=== PATIENT | male | born 1970 | race Caucasian/White ===

== ENCOUNTER 2016-12-17 05:20 | Emergency (ER) | payer OTHER ==
[~2016-12-17] VITALS: Ht 167.6 cm; Wt 82.0 kg
[2016-12-17 05:25] VITALS: Ht 167.6 cm; Wt 82.0 kg
--- NOTE | 2016-12-17 06:24 | ERD ---
ER Documentation Chief Complaint Chief Complaint right foot pain/swelling, fell from stool 3 weeks ago HPI 45-year-old male complains of right lateral foot pain with swelling after falling off a stool 3 weeks ago. 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 Patient landed on the lateral aspect of his foot and is complaining of moderate pain, with swelling, that is achy worse with weightbearing and better at rest. He tried taking ibuprofen with the pain has not alleviated itself. ROS All systems reviewed and are negative except as per history of present illness. Medications Home Meds Active Scripts Hydrocodone/Acetaminophen ([place] 5-325 Tablet) 1 Each Tablet, 1 TAB PO Q6H Y for PAIN, #15 TAB Prov:ETHAN BOWENS PA-C 12/17/16 Ibuprofen* (Motrin*) 600 Mg Tab, 600 MG PO Q6, #30 TAB Prov:ETHAN BOWENS PA-C 12/17/16 Allergies Allergies: Coded Allergies: No Known Drug Allergies (Verified Allergy, Unknown, 12/17/16) PMhx/Soc Medical and Surgical Hx: pt denies Surgical Hx Hx Miscellaneous Medical Probl: Yes (Acid Reflux) Hx Alcohol Use: Yes Hx Substance Use: No Hx Tobacco Use: Yes Smoking Status: Current every day smoker Physical Exam Vitals Vital Signs Date Time Temp Pulse Resp B/P Pulse Ox O2 Delivery O2 Flow Rate FiO2 12/17/16 05:25 98.4 101 20 141/81 98 Physical Exam General: Well-developed, well-nourished. The patient appears in no acute distress. HEENT: Head is normocephalic, atraumatic. No scleral icterus. Neck: Supple. Nontender. Lungs: Clear to auscultation. Normal air movement. Heart: Regular rate and rhythm. S1 and S2 are normal. No murmurs, gallops, or rubs. Abdomen: Nondistended. Extremities: Right dorsal foot swelling at the lateral aspect, there is tenderness to palpation proximal to the fourth toe. There is soft tissue swelling. Pain is reproduced with weightbearing, he has full range with passive flexion and extension as well as active range of motion. The ankle is unremarkable. There is no warmth, no erythema. Neurologic: Alert and oriented 3. No focal deficits. Normal speech and gait. Skin: Normal turgor. No rash or lesions. Results 24 hrs DIAGNOSTIC IMAGING REPORT Patient: EWA VALENZUELA : 1970 Age: 45 Sex: M MR #: [id number] DOS: 12/17/16 0000 Ordering MD: ETHAN BOWENS PA-C Location: [facility] Room/Bed: PROCEDURE: XR Right Foot. CLINICAL INDICATION: Trauma due to a fall 2 weeks ago. Right foot pain. TECHNIQUE: 3 views. Frontal, lateral, and oblique. COMPARISON: None. FINDINGS: There is a healing fracture of the distal neck of the fourth metatarsal with satisfactory alignment. There is no other fracture and there is no dislocation. There is marked soft tissue swelling overlying the metatarsal heads. Articular surfaces are intact. There is no lytic or blastic lesion. There is no radiopaque foreign body. IMPRESSION: 1. Healing fracture of the distal neck of the fourth metatarsal with satisfactory alignment. 2. Marked soft tissue swelling overlying the metatarsal heads. RPTAT: QQ .Jose Fletcher MD, MD Date Time Electronically viewed and signed by .Jose Fletcher MD, MD on 12/17/2016 07:27 .R/ CC: ETHAN BOWENS PA-C Procedures/MDM ED course: Patient's right foot was placed in a cam boot. Crutches to be used to be weightbearing as tolerated. Splint Assessment: Neurovascularly intact post splint placement with good fit. Medical decision makin-year-old male presents with subacute closed right fourth metatarsal fracture at the neck. Patient is neurovascularly intact was placed in a cam boot and crutches to be followed with orthopedics shortly. He hurt this for about 3 weeks and has been continuing to play and walk on it, he has been asked to rest and ice the area. Departure Diagnosis: Primary Impression: Metatarsal fracture Condition: Good ETHAN BOWENS PA-C Dec 17, 2016 06:24
[2016-12-17] MEDS ORDERED: HYDR-906 PO (07:22)
[2016-12-17] MEDS ORDERED: IBUP-1542 PO (07:22)
--- NOTE | 2016-12-17 07:27 | RADRPT ---
PROCEDURE: XR Right Foot. CLINICAL INDICATION: Trauma due to a fall 2 weeks ago. Right foot pain. TECHNIQUE: 3 views. Frontal, lateral, and oblique. COMPARISON: None. FINDINGS: There is a healing fracture of the distal neck of the fourth metatarsal with satisfactory alignment. There is no other fracture and there is no dislocation. There is marked soft tissue swelling overlying the metatarsal heads. Articular surfaces are intact. There is no lytic or blastic lesion. There is no radiopaque foreign body. IMPRESSION: 1. Healing fracture of the distal neck of the fourth metatarsal with satisfactory alignment. 2. Marked soft tissue swelling overlying the metatarsal heads. RPTAT: QQ .Jose Fletcher MD, Date Time Electronically viewed and signed by .Jose Fletcher MD, on 12/17/2016 07:27 .R/
== END 2016-12-17 07:45 | disposition home or self-care (01) ==
LOC: FTE 05:20
DX: S92.341A Displaced fracture of fourth metatarsal bone, right foot, initial encounter for closed fracture (principal); F17.210 Nicotine dependence, cigarettes, uncomplicated; W08.XXXA Fall from other furniture, initial encounter; Y92.9 Unspecified place or not applicable
CPT/HCPCS: 73630; Z7502